=== PATIENT | male | born 1975 | race African-American/Black ===

== ENCOUNTER 2016-11-16 15:32 | Emergency (ER) | payer SELFPAY ==
[~2016-11-16] VITALS: Ht 182.9 cm; Wt 74.8 kg
[2016-11-16 15:36] VITALS: BP 126/84
--- NOTE | 2016-11-16 15:39 | NUR ---
Patient was BIBA and taken to bed 02 via gurney per EMS.
--- NOTE | 2016-11-16 15:44 | NUR ---
Bed 3
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
--- NOTE | 2016-11-16 17:14 | NUR ---
Dr. Dalal evaluating patient at bedside.
[2016-11-16 17:47] VITALS: BP 139/98
--- NOTE | 2016-11-16 17:47 | NUR ---
Patient discharged with v/s stable. Written and verbal after care instructions given and explained. Patient alert, oriented and verbalized understanding of instructions. Ambulatory with steady gait. All questions addressed prior to discharge. ID band removed. Patient advised to follow up with PMD. Rx of BACITRACIN OINTMENT given. Patient educated on indication of medication including possible reaction and side effects. Opportunity to ask questions provided and answered.
== END 2016-11-16 17:47 | disposition home or self-care (01) ==
LOC: MED 15:32
DX: S80.212A Abrasion, left knee, initial encounter (principal); S80.812A Abrasion, left lower leg, initial encounter; S90.811A Abrasion, right foot, initial encounter; V19.40XA Pedal cycle driver injured in collision with unspecified motor vehicles in traffic accident, initial encounter; Y93.89 Activity, other specified; Y92.89 Other specified places as the place of occurrence of the external cause; Y99.8 Other external cause status

== ENCOUNTER 2019-11-16 10:02 | Emergency (ER) | payer OTHER ==
[~2019-11-16] VITALS: Ht 185.4 cm; Wt 72.7 kg
[2019-11-16 10:15] VITALS: BP 144/81
--- NOTE | 2019-11-16 10:43 | NUR ---
PT BIB SELF C/O LT FOOT/ANKLE PAIN S/P PLAYING BASKETBALL 1DAY AGO. PT DENIES N/V/D; SKIN IS INTACT, PINK/WARM/DRY; AAOX4, PERRL, WITH EVEN AND STEADY GAIT; LUNGS CLEAR BL, BREATHING UNLABORED; HR EVEN AND REGULAR, BL PERIPHERAL PULSES PRESENT; BS ACTIVE X4, NO TENDERNESS TO PALPATION. PT DENIES ANY FEVER, CP, SOB, OR COUGH AT THIS TIME; PT STATES 7/10 PAIN AT THIS TIME; VSS; PATIENT POSITIONED FOR COMFORT; HOB ELEVATED; BEDRAILS UP X2; BED DOWN.
--- NOTE | 2019-11-16 10:45 | NUR ---
PT SENT TO XRAY VIA W/C
--- NOTE | 2019-11-16 11:03 | NUR ---
PT BACK FROM XRAY
--- NOTE | 2019-11-16 12:31 | NUR ---
APPLIED ANKLE STIRRUP TO LEFT ANKLE WITHOUT ANY ISSUES. PT DEMONSTRATED PROPER USEOF CRUTCHES
--- NOTE | 2019-11-16 12:31 | NUR ---
FOOT BRACE-WNL GOOD PMS POST LT FOOT SPLINT
[2019-11-16 12:33] VITALS: BP 131/78
--- NOTE | 2019-11-16 12:33 | NUR ---
Patient discharged with v/s stable. Written and verbal after care instructions given and explained. Patient alert, oriented and verbalized understanding of instructions. Wheel Chair Assisted with to car. All questions addressed prior to discharge. ID band removed. Patient advised to follow up with PMD.NO Rx given. Patient educated on indication of medication including possible reaction and side effects. Opportunity to ask questions provided and answered.
== END 2019-11-16 12:33 | disposition home or self-care (01) ==
LOC: MED 10:02
DX: S93.492A Sprain of other ligament of left ankle, initial encounter (principal); X58.XXXA Exposure to other specified factors, initial encounter; Y93.89 Activity, other specified; Y92.89 Other specified places as the place of occurrence of the external cause; Y99.8 Other external cause status
CPT/HCPCS: 29515; 73610; 73630; 99284

== ENCOUNTER 2020-06-17 08:57 | Emergency (ER) | payer SELFPAY ==
[~2020-06-17] VITALS: Ht 182.9 cm; Wt 68.0 kg
[2020-06-17 09:04] VITALS: BP 134/81
--- NOTE | 2020-06-17 09:08 | NUR ---
PT W/C ASSISTED TO BED 4.
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
--- NOTE | 2020-06-17 09:16 | NUR ---
DR BROWN AT BEDSIDE EVALUATING PT.
[2020-06-17] MEDS ORDERED: HYDROcodone/APAP 10/325 MG 1 TAB TAB PO ONE (09:20)
[2020-06-17] MEDS ORDERED: KETOROLAC 15 MG/ML VIAL IM ONE (09:20)
--- NOTE | 2020-06-17 09:35 | NUR ---
XRAY AT BEDSIDE
[2020-06-17 11:17] VITALS: BP 130/80
--- NOTE | 2020-06-17 11:20 | NUR ---
Patient discharged with v/s stable. Written and verbal after care instructions given and explained regarding ankle sprain. Patient alert, oriented and verbalized understanding of instructions. Ambulatory with steady gait. All questions addressed prior to discharge. ID band removed. Patient advised to follow up with PMD. Rx of motrin given. Patient educated on indication of medication including possible reaction and side effects. Opportunity to ask questions provided and answered.Crutches provided .
== END 2020-06-17 11:20 | disposition home or self-care (01) ==
LOC: MED 08:57
DX: S93.492A Sprain of other ligament of left ankle, initial encounter (principal); M79.672 Pain in left foot; X50.9XXA Other and unspecified overexertion or strenuous movements or postures, initial encounter; Y93.89 Activity, other specified; Y92.89 Other specified places as the place of occurrence of the external cause; Y99.8 Other external cause status
CPT/HCPCS: 73610; 73620; 96372; 99284; J1885

== ENCOUNTER 2020-11-07 15:47 | Inpatient (IN) | payer MEDICAID, SELFPAY ==
[~2020-11-07] VITALS: Ht 182.9 cm; Wt 64.9 kg
[~2020-11-07 15:47] MED LIST: ASPI-1856 PO; ATOR20TA40 PO; AZIT250T11 PO; METO25TA PO; PANT40EC56 PO
--- NOTE | 2020-11-07 15:50 | NUR ---
Patient BIBA BLS, transferred to bed 6. RN evaluating the patient at bedside.
[2020-11-07 15:52] VITALS: BP 112/76
--- NOTE | 2020-11-07 15:52 | NUR ---
DR FUENTES AT BEDSIDE FOR EVALUATION
--- NOTE | 2020-11-07 16:02 | NUR ---
45 Y/O MALE BIBA FOR SOB. PT WAS PREVIOUSLY ADMITTED 11/03/20 FOR PNA, LEFT AMA TODAY. 18G L AC. ON ASSESSMENT, LUNG SOUNDS CLEAR UPPER LOBES BILATERAL WITH CRACKLES AUSCULATED BILATERAL LOWER LOBES. CAP REFILL <3 SECONDS, NO EDEMA, NO JVD. SPO2 100% ON RA. PT IS MOUTH BREATHING AND STATING HE IS FEELING VERY ANXIOUS. PT DENIES PAIN AT THIS TIME AND STATES HIS SOB COMES AND GOES. PT HAS COUGH THAT IS PRODUCTIVE XWEEKS. PT DENIES N/V/D/C. PT IS A/O X4 WITH EVEN/SYMMETRIC RISE AND FALL BREATHING. PT LAYING IN BED, BED IN LOWEST POSITION, BRAKES LOCKED, X1 SIDERAIL UP. PMH: RONDA NKA
--- NOTE | 2020-11-07 16:05 | NUR ---
EMT AND LAB AT BEDSIDE
--- NOTE | 2020-11-07 16:15 | NUR ---
RAD AT BEDSIDE
[2020-11-07 16:29] LABS: BASOPHILS # (AUTO) 0.1 K/uL (0.00-0.22); EOSINOPHILS % (AUTO) 0.3 % (0.0-4.0); HEMATOCRIT 34.1 % (36-52); HEMOGLOBIN 10.6 g/dL (12.0-18.0); LYMPHOCYTES # (AUTO) 2.6 K/uL (2.0-11.5); LYMPHOCYTES % (AUTO) 35.5 % (20.5-51.1); MEAN CORPUSCULAR HEMOGLOBIN 23 pg (27-31); MEAN CORPUSCULAR HGB CONC 31 g/dL (33-37); MEAN CORPUSCULAR VOLUME 73.7 fL (80-94); MONOCYTES # (AUTO) 0.7 K/uL (0.8-1.0); MONOCYTES % (AUTO) 10.3 % (1.7-9.3); NEUTROPHILS # (AUTO) 3.8 K/uL (1.8-7.7); NEUTROPHILS % (AUTO) 52.9 % (42.2-75.2); PLATELET COUNT (AUTO) 509 K/uL (140-450); RED BLOOD CELL COUNT(AUTO) 4.63 MIL/uL (4.20-6.10); RED CELL DISTRIBUTION WIDTH 18.9 % (11.6-13.7); WHITE BLOOD COUNT (AUTO) 7.2 K/uL (4.8-10.8)
[2020-11-07 16:49] LABS: PROTHROMBIN TIME 12.5 secs (10.8-13.4)
[2020-11-07 16:52] LABS: ALBUMIN 2.8 g/dL (3.4-5.0); ANION GAP 21.5 (8-16); CARBON DIOXIDE 17.3 mmol/L (21-32); CREATININE 1.7 mg/dL (0.6-1.3); POTASSIUM 4.8 mmol/L (3.5-5.1); TOTAL BILIRUBIN 0.6 mg/dL (0.0-1.0)
[2020-11-07] MEDS ORDERED: FUROSEMIDE 40 MG/4 ML VIAL IVP ONE (17:10)
--- NOTE | 2020-11-07 17:12 | NUR ---
Patient oxygen saturation dropped to 76% on room air when ambulating in room. Dr Joshi made aware and placed on 2L NC per Dr Joshi
--- NOTE | 2020-11-07 18:05 | NUR ---
PT EATING IN BED. VS STABLE. WILL CONTINUE TO MONITOR.
--- NOTE | 2020-11-07 19:20 | NUR ---
REPORT GIVEN TO TRE RUBIO. TRANSFER OF CARE AT THIS TIME.
--- NOTE | 2020-11-07 21:00 | NUR ---
Patient will be admitted to care of [facility]. Admited to TELE. Will go to room. Belongings list completed. Report to .
--- NOTE | 2020-11-07 21:03 | NUR ---
Pt arrived via stretcher from ED. Pt A+O*4, ambulatory w/o assist and denies any changes since last hospital stay.
--- NOTE | 2020-11-07 21:31 | NUR ---
PT SEEPING COMFORTABLY ON 2LNC W/ NO DISTRESS NOTED WILL CONTINUE TO MONITOR
[2020-11-08] VITALS: BP 108/73
--- NOTE | 2020-11-08 06:05 | NUR ---
MRSA SCREEN COLLECTED AND SENT TO LAB.
[2020-11-08 08:00] VITALS: BP 111/78
[2020-11-08] MEDS ORDERED: LORazepam 2 MG/ML VIAL IM/IVP PRN (08:25)
[2020-11-08] MEDS ORDERED: ONDANSETRON 4 MG/2 ML VIAL IM/IVP PRN (08:25)
[2020-11-08] MEDS ORDERED: POTASSIUM CHLORIDE 10 MEQ TABER PO PRN (08:25)
[2020-11-08] MEDS ORDERED: MAG SULF 2000 MG/WATER PREMIX 50 ML IV PRN (08:25)
[2020-11-08] MEDS ORDERED: DOCUSATE SODIUM 100 MG GELCAP PO PRN (08:25)
[2020-11-08] MEDS ORDERED: ZOLPIDEM 5 MG TAB PO PRN (08:25)
[2020-11-08] MEDS ORDERED: ACETAMINOPHEN 325 MG TAB PO PRN (08:25)
[2020-11-08] MEDS ORDERED: MAGNESIUM HYDROXIDE 2400 MG/30 ML UDC PO PRN (08:25)
[2020-11-08] MEDS ORDERED: AZITHROMYCIN 250 MG TAB PO SCH (08:30)
--- NOTE | 2020-11-08 08:44 | NUR ---
PATIENT HAS BEEN SCREENED AND CATEGORIZED MODERATE NUTRITION RISK. PATIENT WILL BE SEEN WITHIN 3-5 DAYS OF ADMISSION. 11/10/20 11/12/[address]
[2020-11-08 09:23] LABS: BASOPHILS % (AUTO) 0.8 % (0.0-2.0); EOSINOPHILS % (AUTO) 0.2 % (0.0-4.0); HEMOGLOBIN 10.2 g/dL (12.0-18.0); LYMPHOCYTES # (AUTO) 1.5 K/uL (2.0-11.5); LYMPHOCYTES % (AUTO) 26.3 % (20.5-51.1); MEAN CORPUSCULAR HEMOGLOBIN 23 pg (27-31); MEAN CORPUSCULAR HGB CONC 31 g/dL (33-37); MEAN CORPUSCULAR VOLUME 73.6 fL (80-94); MONOCYTES # (AUTO) 0.6 K/uL (0.8-1.0); MONOCYTES % (AUTO) 10.4 % (1.7-9.3); NEUTROPHILS # (AUTO) 3.5 K/uL (1.8-7.7); NEUTROPHILS % (AUTO) 62.3 % (42.2-75.2); PLATELET COUNT (AUTO) 467 K/uL (140-450); RED BLOOD CELL COUNT(AUTO) 4.48 MIL/uL (4.20-6.10); WHITE BLOOD COUNT (AUTO) 5.6 K/uL (4.8-10.8)
[2020-11-08 09:45] LABS: ANION GAP 13.3 (8-16); CARBON DIOXIDE 24.4 mmol/L (21-32); CREATININE 1.6 mg/dL (0.6-1.3); POTASSIUM 4.7 mmol/L (3.5-5.1)
[2020-11-08 09:59] LABS: MAGNESIUM 1.8 mg/dL (1.8-2.4); PHOSPHORUS 2.5 mg/dL (2.5-4.9); THYROID STIMULATING HORMONE 5.12 uIU/mL (0.34-3.74)
[2020-11-08] MEDS: METOPROLOL 25 MG TAB PO SCH ×2 (10:04→20:30)
[2020-11-08] MEDS: ECOTRIN 81 MG TABEC PO SCH (10:04)
[2020-11-08] MEDS: FUROSEMIDE 40 MG/4 ML VIAL IVP SCH (10:04)
[2020-11-08] MEDS: PANTOPRAZOLE 40 MG TABEC PO SCH (10:04)
[2020-11-08] MEDS: lisinopriL 5 MG TAB PO SCH (10:05)
[2020-11-08] MEDS: AZITHROMYCIN 250 MG TAB PO SCH (10:08)
--- NOTE | 2020-11-08 11:34 | NUR ---
PATIENT COMPLAINED OF SHORTNESS OF BREATH . AT 2LPM VIA NC 100%. BLOOD SUGAR 181. PATIENT HAVING COLD SWEATS AND MOIST COUGH. DENIES PAIN. RESPIRATORY THERAPIST CALLED [id number] RO ASSESS PATIENT. CHARGE NURSE AWARE.
--- NOTE | 2020-11-08 11:38 | NUR ---
MEDICAL STUDENTS AT BEDSIDE, DONG WEISS, INFORMED OF COLD SWEATS, SHORTNESS OF BREATHE AND CLEAR , PRODUCTIVE INTERMITTENT COUGH.
--- NOTE | 2020-11-08 11:56 | NUR ---
THIS NURSE SPOKE TO PAVAN ADLER AND REPORTED THAT PATIENT IS EXPERIENCING COLD SWEATS, AND SHORTNESS OF BREATH. WAITING TO CLARIFY ORDERS FOR CT IF WITH OR WITHOUT IV CONTRAST. CHARGE NURSE MADE AWARE.
[2020-11-08 12:00] VITALS: BP 106/75
--- NOTE | 2020-11-08 13:52 | NUR ---
PATIENT TAKEN VIA WHEELCHAIR FOR CT OF THE CHEST WITHOUT CONTRAST, AND BACK TO UNIT AT THIS TIME.
[2020-11-08 16:00] VITALS: BP 87/60
[2020-11-08] MEDS: ATORVASTATIN 20 MG TAB PO SCH (17:31)
[2020-11-08 20:00] VITALS: BP 87/57
[2020-11-08 21:57] LABS: BARBITURATE, URINE NEGATIVE ng/ml (NEG <=200); BENZODIAZEPINE, URINE NEGATIVE ng/mL (NEG <=200); CANNABINOID, URINE POSITIVE ng/mL (NEG <=50); COCAINE, URINE NEGATIVE ng/mL (NEG <=300); OPIATE, URINE NEGATIVE ng/mL (NEG <=2000); PHENCYCLIDINE SCREEN,URINE NEGATIVE ng/mL (NEG <=25)
[2020-11-08 22:34] LABS: APPEARANCE,URINE CLEAR (CLEAR); BILIRUBIN,URINE NEGATIVE (NEGATIVE); BLOOD, URINE NEGATIVE (NEGATIVE); COLOR,URINE YELLOW (YELLOW); LEUKOCYTE ESTERASE ,URINE NEGATIVE (NEGATIVE); NITRITE, URINE NEGATIVE (NEGATIVE); PH,URINE 5.5 (5.0-9.0); UGLUCOSE NEGATIVE (NEGATIVE)
[2020-11-09] VITALS: BP 104/75
[2020-11-09 04:00] VITALS: BP 92/69
[2020-11-09 07:34] LABS: ANION GAP 13.1 (8-16); CREATININE 1.4 mg/dL (0.6-1.3); POTASSIUM 4.1 mmol/L (3.5-5.1)
[2020-11-09 07:35] LABS: BASOPHILS % (AUTO) 0.4 % (0.0-2.0); EOSINOPHILS % (AUTO) 0.3 % (0.0-4.0); HEMATOCRIT 31.2 % (36-52); HEMOGLOBIN 9.7 g/dL (12.0-18.0); LYMPHOCYTES # (AUTO) 2.1 K/uL (2.0-11.5); LYMPHOCYTES % (AUTO) 36.6 % (20.5-51.1); MEAN CORPUSCULAR HEMOGLOBIN 23 pg (27-31); MEAN CORPUSCULAR HGB CONC 31 g/dL (33-37); MEAN CORPUSCULAR VOLUME 73.5 fL (80-94); MONOCYTES # (AUTO) 0.7 K/uL (0.8-1.0); NEUTROPHILS # (AUTO) 2.9 K/uL (1.8-7.7); NEUTROPHILS % (AUTO) 50.7 % (42.2-75.2); PLATELET COUNT (AUTO) 438 K/uL (140-450); RED BLOOD CELL COUNT(AUTO) 4.24 MIL/uL (4.20-6.10); RED CELL DISTRIBUTION WIDTH 19.2 % (11.6-13.7); WHITE BLOOD COUNT (AUTO) 5.7 K/uL (4.8-10.8)
[2020-11-09 07:37] LABS: PHOSPHORUS 2.6 mg/dL (2.5-4.9)
--- NOTE | 2020-11-09 07:45 | NUR ---
RECEIVED BEDSIDE ENDORSEMENT FROM NIGHTSPAFT NURSE FOR CONTINUITY OF CARE.
[2020-11-09 08:00] VITALS: BP 102/82
[2020-11-09 08:08] LABS: T4 (THYROXINE) 4.1 ug/dL (4.5-12.0)
--- NOTE | 2020-11-09 08:49 | NUR ---
[employer]: RECEIVED ORDER FOR FWW. PATIENTS INSURANCE MAY NOT COVER DME BUT FAXED TO [facility] FOR THEM TO RUN THE ELIGIBILITY. Addendum: 11/09/20 at 1455 by Yas Benavides CM [employer]: WALKER HAS BEEN DELIVERED. BROUGHT WALKER TO PATIENTS ROOM. JOANNE SERRATO MADE AWARE. Addendum: 11/10/20 at 1110 by Yas Benavides CM DC [employer]K [employer]: PATIENT DOES NOT HAVE A PCP OR ACTIVE INSURANCE TO SCHEDULE A POST DISCHARGE APPOINTMENT. MARIAH PROVIDED RESOURCES FOR THE [facility].
[2020-11-09] MEDS: ECOTRIN 81 MG TABEC PO SCH (08:53)
[2020-11-09] MEDS: METOPROLOL 25 MG TAB PO SCH ×2 (08:54→20:43)
[2020-11-09] MEDS: AZITHROMYCIN 250 MG TAB PO SCH (08:54)
[2020-11-09] MEDS: PANTOPRAZOLE 40 MG TABEC PO SCH (08:54)
[2020-11-09] MEDS: FUROSEMIDE 40 MG/4 ML VIAL IVP SCH ×2 (08:55→17:00)
[2020-11-09] MEDS: lisinopriL 5 MG TAB PO SCH (08:55)
--- NOTE | 2020-11-09 09:08 | NUR ---
ADMINISTERED PRESCRIBED MEDS PER MD ORDER. PATIENT TOLERATED WELL. MEDICATION EDUCATION PROVIDED. PATIENT VERBALIZED UNDERSTANDING. PATIENT LAYING IN BED, WATCHING TV. BREAKFAST TRAY AT BEDSIDE. PATIENT IS AOx4 ABLE TO MAKE NEEDS KNOWN, RESPIRATIONS EVEN AND UNLABORED. NO SIGNS OF DISTRESS. PATIENT DENIES PAIN. SAFETY MEASURES IN PLACE. WILL CONTINUE TO MONITOR.
--- NOTE | 2020-11-09 09:09 | NUR ---
SOCIAL WORK NOTE: Patient's Orientation Person Situation Place Time Information Provided By PATIENT Comments SW MET PATIENT AT BEDSIDE. SW COMPLETED ASSESSMENT WITH PATIENT. Editorial Writer, Realtionship and Phone Number MAMADOU CERDA SON [phone] SHARMILA BREWSTER COUSIN [phone] Healthcare Power of Wrapper Off No Does Patient Have a POLST No Identifying Problems No Social Work Triggers Is A Social Work Consult Needed No Mandate Report Filed No Explanation Of Identifying Problems PATIENT IS A 45-YEAR-OLD MALE ADMITTED FOR ACUTE RESPIRATORY FAILURE. PATIENT HAS PMHX OF CHF AND COVID. PATIENT STATED THAT HE IS IN BETWEEN HOMES AND WAS PREVIOUSLY STAYING WITH COUSIN, SHARMILA BREWTSER. PATIENT STATED THAT HE RECEIVES UNEMPLOYMENT TOTALING TO 600 A MONTH. PATIENT STATED THAT [employer] WAS IN [place] WITH COUSIN, BUT HAS STAYED IN [place] SINCE DISPUTE WITH COUSIN. PATIENT REFUSED HOMELESS RESOURCES. Admitted From Home Pre-Admission Level Of Functioning Status Independent/Ambulatory Prior Resources/Services Used In Last 12 Months No Prior Resources Used Prior DME No Prior DME Used Dialysis Comments N/A Living Situation Rents A Room Patient Had Caregiver No Home Support No Caregiver Issues Financial Issues No Known Financial Issue Referral To The Financial Counselor Needed No Factors/Needs No D/C Needs Identified Pt/Rep Participated In Discharge Plan Yes Patient/Family Agress With Discharge Plan Yes Discharge Plan Comments TENTATIVE DISCHARGE PLAN IS FOR PATIENT TO RETURN HOME. DC Plan Status Initiated Addendum: 11/10/20 at 1415 by Rex Guzman SS MARIAH CONTACTED SHARMILA SANTIAGOES REGARDING PATIENT'S DISCHARGE PLAN TO SEE IF SHE IS ABLE TO ASSIST. MARIAH LEFT VM.
--- NOTE | 2020-11-09 11:07 | NUR ---
HOURLY ROUNDING PERFORMED. PATIENT LAYING IN BED WATCHING TV. DENIES PAIN, STATED NO CONCERNS AT THE MOMENT. SAFETY MEASURES IN PLACE. WILL CONTINUE TO MONITOR.
[2020-11-09 12:00] VITALS: BP 90/68
--- NOTE | 2020-11-09 13:45 | NUR ---
HOURLY ROUNDING PERFORMED. PATIENT IS SLEEPING. VISIBLE RISE AND FALL OF CHEST NOTED. NO SIGNS OF DISTRESS. SAFETY MEASURES IN PLACE. WILL CONTINUE TO MONITOR.
[2020-11-09 16:00] VITALS: BP 88/55
[2020-11-09] MEDS: ATORVASTATIN 20 MG TAB PO SCH (17:05)
--- NOTE | 2020-11-09 17:12 | NUR ---
ADMINISTERED PRESCRIBED MEDS PER MD ORDER. PATIENT TOLERATED WELL. MEDICATION EDUCATION PROVIDED, PATIENT VERBALIZED UNDERSTANDING. SAFETY MEASURES IN PLACE. WILL CONTINUE TO MONITOR.
--- NOTE | 2020-11-09 19:19 | NUR ---
BEDSIDE ENDORSEMENT PROVIDED TO NIGHTSHIFT NURSE FOR CONTINUITY OF CARE.
--- NOTE | 2020-11-09 19:25 | NUR ---
RECEIVED BEDSIDE REPORT FROM DAY SHIFT NURSE FOR CONTINUITY OF CARE. PT IS AWAKE AND ALERT, A&OX4. ON 2L O2 NC WITH BREATHING UNLABORED. NO RESPIRATORY DISTRESS NOTED. PT IS ON TELE MONITORING. AMBULATORY INDEPENDENTLY. SKIN IS WARM, DRY, AND INTACT. LAST BM WAS 3/2 PER DAY SHIFT NURSE. IV IS IN THE LEFT AC 18 GAUGE SALINE LOCKED. PT IS STABLE AT THIS TIME. PLAN OF CARE DISCUSSED.
[2020-11-09 20:00] VITALS: BP 91/62
--- NOTE | 2020-11-09 20:44 | NUR ---
DID NOT ADMINISTER METOPROLOL ORDERED FOR 2100 DUE TO DECREASED BP. BP WAS 91/64. WILL CONTINUE TO MONITOR BP. PT IS ASYMPTOMATIC, NO DIZZINESS, OR DISTRESS.
--- NOTE | 2020-11-09 22:30 | NUR ---
PT STATES HE IS FEELING VERY WARM. CHECKED TEMP AND IT WAS WNL. BLANKET WAS REMOVED AND AIR CONDITIONING WAS TURNED ON. ICE CHIPS WERE ALSO PROVIDED. NC IN PLACE AT 2L O2. BREATHING IS UNLABORED. COUGHING PRESENT, NONPRODUCTIVE. WILL CONTINUE TO MONITOR.
[2020-11-10] VITALS: BP 96/70
--- NOTE | 2020-11-10 00:20 | NUR ---
ROUNDED ON PT. HE IS ASLEEP, NO DISTRESS NOTED. ROOM HAS COOLED DOWN. BLANKETS IN PLACE. WALKER IS AT BEDSIDE NEXT TO BEDSIDE COMMODE. BREATHING IS UNLABORED. PT IS STABLE.
--- NOTE | 2020-11-10 02:29 | NUR ---
PT IS AWAKE AND SPEAKING APPROPRIATELY. IN BED, SEMI FOWLERS POSITION. BREATHING IS UNLABORED AND NO COUGHING IS PRESENT. BLANKET WAS PROVIDED FOR COMFORT. PT IS STABLE. WILL CONTINUE TO MONITOR.
[2020-11-10 04:00] VITALS: BP 99/70
--- NOTE | 2020-11-10 04:00 | NUR ---
ASSESSED PT'S SACRAL REGION AFTER HE TURNED OVER ON HIS SIDE. PT DOES NOT HAVE A SACRAL WOUND. PT DOES NOT HAVE ANY WOUNDS ANYWHERE ON HIS BODY. PT IS STABLE AT THIS TIME. RESPONDING APPROPRIATELY, A&OX4. ON 2L O2 NC WITH BREATHING UNLABORED. PT DENIES ANY PAIN OR SOB AT THIS TIME.
--- NOTE | 2020-11-10 05:59 | NUR ---
ROUNDED ON PT. HE IS SLEEPING IN SEMI FOWLERS POSITION. NO DISTRESS NOTED. TABLE IS AT THE BEDSIDE WITHIN REACH. PT HAS ICE CHIPS AT THE BEDSIDE. NC IN PLACE. PT IS STABLE.
[2020-11-10 07:13] LABS: ANION GAP 14.8 (8-16); CARBON DIOXIDE 24.6 mmol/L (21-32); CREATININE 1.3 mg/dL (0.6-1.3); POTASSIUM 4.4 mmol/L (3.5-5.1)
--- NOTE | 2020-11-10 07:25 | NUR ---
ENDORSED PT TO DAY SHIFT NURSE FOR CONTINUITY OF CARE. PT IS STABLE AT THIS TIME. PLAN OF CARE DISCUSSED.
--- NOTE | 2020-11-10 07:26 | NUR ---
RECEIVED REPORT FROM NIGHT NURSE FOR CONTINUITY OF CARE. PT IS STABLE. PT ON 2L NC. PT HAS LAC 18G SALINE LOCK. PT SITTING IN BED. SKIN INTACT. SAFETY MEASURES IN PLACE, WILL CONTINUE TO MONITOR.
[2020-11-10 07:35] LABS: BASOPHILS # (AUTO) 0.1 K/uL (0.00-0.22); BASOPHILS % (AUTO) 1.6 % (0.0-2.0); EOSINOPHILS % (AUTO) 0.5 % (0.0-4.0); HEMATOCRIT 29.7 % (36-52); HEMOGLOBIN 9.3 g/dL (12.0-18.0); LYMPHOCYTES # (AUTO) 2.1 K/uL (2.0-11.5); LYMPHOCYTES % (AUTO) 38.2 % (20.5-51.1); MEAN CORPUSCULAR HEMOGLOBIN 23 pg (27-31); MEAN CORPUSCULAR HGB CONC 31 g/dL (33-37); MEAN CORPUSCULAR VOLUME 73.7 fL (80-94); MONOCYTES # (AUTO) 0.8 K/uL (0.8-1.0); MONOCYTES % (AUTO) 14.6 % (1.7-9.3); NEUTROPHILS # (AUTO) 2.4 K/uL (1.8-7.7); NEUTROPHILS % (AUTO) 45.1 % (42.2-75.2); PLATELET COUNT (AUTO) 418 K/uL (140-450); RED BLOOD CELL COUNT(AUTO) 4.03 MIL/uL (4.20-6.10); RED CELL DISTRIBUTION WIDTH 18.7 % (11.6-13.7); WHITE BLOOD COUNT (AUTO) 5.4 K/uL (4.8-10.8)
[2020-11-10 08:00] VITALS: BP 99/71
[2020-11-10] MEDS: METOPROLOL 25 MG TAB PO SCH (09:00)
[2020-11-10] MEDS: FUROSEMIDE 40 MG/4 ML VIAL IVP SCH (09:00)
[2020-11-10] MEDS: lisinopriL 5 MG TAB PO SCH (09:00)
[2020-11-10] MEDS: AZITHROMYCIN 250 MG TAB PO SCH (09:16)
[2020-11-10] MEDS: ECOTRIN 81 MG TABEC PO SCH (09:16)
[2020-11-10] MEDS: PANTOPRAZOLE 40 MG TABEC PO SCH (09:16)
--- NOTE | 2020-11-10 09:26 | NUR ---
ADMINISTERED SCHEDULED MEDICATION, MEDICATION EDUCATION PROVIDED. PT TOLERATED WELL. PT IS STABLE, WILL CONTINUE TO MONITOR. SAFETY MEASURES IN PLACE.
[2020-11-10] MEDS ORDERED: FURO-570 PO (11:16)
--- NOTE | 2020-11-10 11:30 | NUR ---
ROUNDING ON PT, PT IS STABLE, PT SITTING IN BED, WILL CONTINUE TO MONITOR
[2020-11-10 12:00] VITALS: BP 101/69
--- NOTE | 2020-11-10 12:50 | NUR ---
ROUNDING ON PT, PT IS STABLE, WILL CONTINUE TO MONITOR.
--- NOTE | 2020-11-10 14:34 | NUR ---
PT RECEIVED DISCHARGED INSTRUCTIONS. PT VERBALIZED UNDERSTANDING. REMOVED IV, IV INTACT, PT TOLERATED WELL. PT IS STABLE. PT WHEELED OUT OF THE HOSPITAL. PT DISCHARGED HOME. PT REFUSED FLU AND PNA VACCINE.
== END 2020-11-10 14:35 | disposition home or self-care (01) | DRG 812 ==
LOC: MED 15:47 → MTU 17:35
DX: T43.621A Poisoning by amphetamines, accidental (unintentional), initial encounter (principal); A41.9 Sepsis, unspecified organism; J18.9 Pneumonia, unspecified organism; G92 Toxic encephalopathy; I50.43 Acute on chronic combined systolic (congestive) and diastolic (congestive) heart failure; N17.0 Acute kidney failure with tubular necrosis; E87.1 Hypo-osmolality and hyponatremia; E86.0 Dehydration; N18.9 Chronic kidney disease, unspecified; E87.2 Acidosis; D50.9 Iron deficiency anemia, unspecified; D68.59 Other primary thrombophilia; E78.5 Hyperlipidemia, unspecified; E02 Subclinical iodine-deficiency hypothyroidism; D47.3 Essential (hemorrhagic) thrombocythemia; I42.9 Cardiomyopathy, unspecified; Z20.822 Contact with and (suspected) exposure to COVID-19; I24.8 Other forms of acute ischemic heart disease; Z87.01 Personal history of pneumonia (recurrent); Z91.19 Patient's noncompliance with other medical treatment and regimen; Z80.8 Family history of malignant neoplasm of other organs or systems; Z80.3 Family history of malignant neoplasm of breast; Z84.89 Family history of other specified conditions; Y92.89 Other specified places as the place of occurrence of the external cause
CPT/HCPCS: 36415; 71045; 71250; 74018; 76705; 80048; 80053; 80305; 81003; 82150; 82948; 83036; 83690; 83735; 83880; 84100; 84134; 84436; 84443; 84484; 85025; 85610; 85730; 87081; 93005; 96374; 97110; 97116; 97530; 99285; J1644; J1940